=== PATIENT | male | born 2000 | race Caucasian/White ===

== ENCOUNTER 2019-04-30 17:23 | Emergency (ER) | payer SELFPAY ==
[~2019-04-30] VITALS: Ht 185.4 cm; Wt 74.6 kg
[2019-04-30 17:25] VITALS: BP 145/82
--- NOTE | 2019-04-30 17:30 | NUR ---
Note libertad in EDM - 04/30/19 at 1841 by IZABELA PT CAME WITH LACERATION AT 3RD AND 4TH FINGER OF LFT HAND WHILE TRIMMING HIS LAWN TODAY. HAS THE MOVEMENT, FEELS THE SENSATION AT AND WARM TO TOUCH. STATES PAIN 8/10 AT THIS TIME. WILL CONTINUE TO MONITOR PT. PT VIKTOR, HAS THE WOUND WRAPPED WITH BANDAGE AT THIS TIME.
--- NOTE | 2019-04-30 17:39 | NUR ---
Patient ambulated to bed 8. RN evaluating patient at bedside.
--- NOTE | 2019-04-30 17:40 | NUR ---
PT CAME WITH LACERATION AT 3RD AND 4TH FINGER OF LFT HAND WHILE TRIMMING HIS LAWN TODAY. HAS THE MOVEMENT, FEELS THE SENSATION AT AND WARM TO TOUCH. STATES PAIN 8/10 AT THIS TIME. WILL CONTINUE TO MONITOR PT. PT BOTH FINGER WRAPPED WITH BANDAE AT THIS TIME. WILL CONTINUE TO MONITOR PT.
--- NOTE | 2019-04-30 17:53 | NUR ---
Dr. Benitez evaluating patient at bedside.
[2019-04-30] MEDS ORDERED: cefTRIAXone 1,000 MG in LIDOCAINE 1% ***ER ONLY *** 2.1 ML IM ONE (18:10)
[2019-04-30] MEDS ORDERED: cefTRIAXone 1,000 MG VIAL ONE (18:26)
[2019-04-30] MEDS ORDERED: LIDOCAINE MPF 1% - 5 mL VIAL 5 ML ONE (18:27)
--- NOTE | 2019-04-30 19:05 | NUR ---
RECEIVED REPORT FROM DORIS ZALDIVAR. TRANSFER OF CARE AT THIS TIME.
--- NOTE | 2019-04-30 19:30 | NUR ---
Patient being evaluated by physician at bedside.
[2019-04-30] MEDS ORDERED: BUPIVACAINE-MPF 0.25% 30 ML VIAL INJ ONE (19:35)
[2019-04-30] MEDS ORDERED: LIDOCAINE MPF 1% - 5 mL VIAL 10 ML ONE (19:50)
--- NOTE | 2019-04-30 19:59 | NUR ---
DR. MANUEL AT BEDSIDE FOR LACERATION REPAIR.
[2019-04-30] MEDS ORDERED: LIDOCAINE MPF 1% 5mL VIAL INJ ONE (20:05)
[2019-04-30] MEDS ORDERED: BUPIVACAINE MPF 0.25% 10 ML VIAL INJ ONE (20:07)
[2019-04-30] MEDS ORDERED: SILVER NITRATE APPLICATOR 1 EA SWAB TP ONE (20:40)
--- NOTE | 2019-04-30 21:15 | NUR ---
RECEIVED REPORT FROM ANTIONETTE ZALDIVAR. PT LAYING IN BED, FAMILY AT BEDSIDE. VSS, RR EVEN AND UNLABORED. ALL NEEDS MET AT THIS TIME.
[2019-04-30 22:00] VITALS: BP 143/92
--- NOTE | 2019-04-30 22:00 | NUR ---
Patient discharged with v/s stable. Written and verbal after care instructions given and explained. Patient alert, oriented and verbalized understanding of instructions. Ambulatory with steady gait. All questions addressed prior to discharge. ID band removed. Patient advised to follow up with PMD. Rx of COLACE, PERCOCET, KEFLEX, ZOFRAN ODT given. Patient educated on indication of medication including possible reaction and side effects. Opportunity to ask questions provided and answered.
== END 2019-04-30 22:00 | disposition home or self-care (01) ==
LOC: MED 17:23
DX: S61.213A Laceration without foreign body of left middle finger without damage to nail, initial encounter (principal); S61.215A Laceration without foreign body of left ring finger without damage to nail, initial encounter; W27.8XXA Contact with other nonpowered hand tool, initial encounter; Y93.H2 Activity, gardening and landscaping; Y92.89 Other specified places as the place of occurrence of the external cause; Y99.8 Other external cause status
CPT/HCPCS: 73140; 90471; 90715; 96372; 99283; J0696; J2001; J3490; Q0092